=== PATIENT | female | born 1980 | race Caucasian/White ===

== ENCOUNTER 2021-06-01 10:51 | Emergency (ER) | payer OTHER ==
[2021-06-01 11:36] VITALS: BP 125/77
--- NOTE | 2021-06-01 11:58 | ED Physician Documentation ---
History of Present Illness - Stated complaint Stated Complaint: C+ - Chief complaint Chief Complaint: Resp - History obtained from History obtained from: Patient - Additonal information Additional information: Patient comes emergency department chief complaint of cough, nasal congestion, and shortness of breath. She states she took 3 at home Covid test and they were all positive. The last one was this morning and her symptoms first started about 5 days ago. Patient states that she is not sure if she had any sick contacts. No fevers. Patient would like the monoclonal antibody infusion. Review of Systems Ten Systems: 10 systems reviewed and negative Constitutional: reports: Reviewed and negative Eyes: reports: Reviewed and negative Ears: reports: Reviewed and negative Nose: reports: Rhinorrhea / runny nose, Congestion Throat: reports: Reviewed and negative Cardiac: reports: Reviewed and negative Respiratory: reports: Dyspnea, Cough GI: reports: Reviewed and negative : reports: Reviewed and negative Skin: reports: Reviewed and negative Musculoskeletal: reports: Reviewed and negative Neurologic: reports: Reviewed and negative Psychiatric: reports: Reviewed and negative Endocrine: reports: Reviewed and negative Immunocompromised: reports: Reviewed and negative PD PAST MEDICAL HISTORY - Allergies Allergies/Adverse Reactions: Allergies Allergy/AdvReac Type Severity Reaction Status Date / Time No Known Drug Allergies Allergy Verified 06/01/21 11:27 PD ED PE NORMAL - Vitals Vital signs reviewed: Yes - General General: Alert and oriented X 3, No acute distress, Well developed/nourished - HEENT HEENT: Atraumatic, PERRL, EOMI, Moist mucous membranes - Neck Neck: Supple, no meningeal sign - Cardiac Cardiac: RRR, No murmur, Strong equal pulses - Respiratory Respiratory: No respiratory distress, Clear bilaterally - Abdomen Abdomen: Soft, Non tender, Non distended - Derm Derm: Normal color, Warm and dry, No rash - Extremities Extremities: No deformity, No edema, No calf tenderness / cord - Neuro Neuro: Alert and oriented X 3, molder offbearer 2-12 intact, Normal speech - Psych Psych: Normal mood, Normal affect Results - Vitals Vitals: Vital Signs - 24 hr 06/01/21 11:28 Temperature 36.8 C Heart Rate 99 Respiratory 16 Rate Blood Pressure 125/77 O2 Saturation 100 Oxygen O2 Source Room air PD MEDICAL DECISION MAKING - ED course Complexity details: considered differential, d/w patient ED course: Patient overall had good vitals and appeared stable. I explained to her that she will need to have a Covid test on file before we can give her the monoclonal antibodies. The patient had a Covid swab done and sent for chest x-ray, which was unremarkable. I have advised the patient that she may watch for her Covid test results via the would be portal, which have included in her discharge instructions, and when she comes back with a positive test through our system, she may seek an antibiotic infusion at that time if she wishes. Patient expresses understanding. We have discussed other indications for return. Departure - Departure Disposition: 01 Home, Self Care Clinical Impression: COVID-19 Condition: Stable Instructions: COVID-19 [facility] Comments: Your chest x-ray is clear. Unfortunately, we cannot give the IV antibodies unless we have an official test on record here. You have a Covid test pending. You need to self quarantine until you test negative or for 2 weeks. The results should be done in 24 to 72 hours. We will call with a positive result, but the fastest way to get a negative result for confirmation is to go to the hospital website at [email or web address], click on the "my [facility]" tab and sign up for the patient portal. If other friends or family get sick and need to have a Covid test done, but do not have signs or symptoms that would necessitate being hospitalized, we encourage testing for coronavirus swabbing station at [phone]. You should have them call to schedule an appointment. Once your test comes back positive, you may come for an antibody infusion. Discharge Date/Time: 06/01/21 13:27
--- NOTE | 2021-06-01 12:39 | XRAY Report ---
PROCEDURE: Chest 1 View X-Ray INDICATIONS: cough/sob/covid TECHNIQUE: One view of the chest was acquired. COMPARISON: None FINDINGS: Surgical changes and devices: None. Lungs and pleura: No pleural effusions or pneumothorax. Lungs are clear. Mediastinum: Mediastinal contours appear normal. Heart size is normal. Bones and chest wall: No suspicious bony lesions. Overlying soft tissues appear unremarkable. IMPRESSION: No acute pulmonary process. Reviewed by: Marcella Rudd MD on 06/01/2021 12:37 PM PDT Approved by: Marcella Rudd MD on 06/01/2021 12:37 PM PDT Station ID: [id number]
== END 2021-06-01 13:27 | disposition home or self-care (01) ==
LOC: ED 10:51
DX: U07.1 COVID-19 (principal)
CPT/HCPCS: 99283; 99284

== ENCOUNTER 2021-06-03 11:00 | Emergency (ER) | payer OTHER ==
--- NOTE | 2021-06-03 12:15 | ED Physician Documentation ---
History of Present Illness - Stated complaint Stated Complaint: C+ - Chief complaint Chief Complaint: General - History obtained from History obtained from: Patient - Additonal information Additional information: Is a 40-year-old woman who was seen in the emergency department 2 days ago and tested positive for Covid. She has a history of asthma and returns for MAB treatment. She had a fever last night of 102.5. She is been taking ibuprofen. No other treatment specific for Covid. She is still coughing feels like she cannot get a deep breath and has nasal congestion. 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 - Allergies Allergies/Adverse Reactions: Allergies Allergy/AdvReac Type Severity Reaction Status Date / Time No Known Drug Allergies Allergy Verified 06/03/21 11:31 - Social History Does the pt smoke?: No Smoking Status: Never smoker Does the pt drink ETOH?: No Does the pt have substance abuse?: No - Immunizations Immunizations are current?: Yes PD ED PE NORMAL - Vitals Vital signs reviewed: Yes - General General: Alert and oriented X 3, No acute distress, Well developed/nourished - HEENT HEENT: Atraumatic, PERRL - Neck Neck: No JVD - Cardiac Cardiac: RRR, No murmur - Respiratory Respiratory: No respiratory distress, Clear bilaterally - Abdomen Abdomen: Normal bowel sounds, Soft - Derm Derm: Normal color, Warm and dry, No rash - Extremities Extremities: No edema - Neuro Neuro: Alert and oriented X 3, No motor deficit, No sensory deficit, Normal speech - Psych Psych: Normal mood Results - Vitals Vitals: Vital Signs - 24 hr 06/03/21 06/03/21 11:32 12:22 Temperature 36.5 C Heart Rate 88 107 H Respiratory 20 Rate Blood Pressure 100/67 99/66 O2 Saturation 100 99 Oxygen O2 Source Room air PD MEDICAL DECISION MAKING - ED course ED course: Covid test positive. Have ordered MAB. Patient counselled that she must still quarantine at home for 10 days past the onset of symptoms. Return in needed. Departure - Departure Disposition: 01 Home, Self Care Clinical Impression: COVID-19 Condition: Good Instructions: ED Viral Syndrome Follow-Up: Jose Noyola MD [Primary Care Provider] - Comments: Continue to quarantine at home until you are 10 days past the onset of your symptoms. Follow-up with your primary care provider as needed. Return to the emergency department if you have worsening shortness of breath, you pass out or other problems arise.
[2021-06-03] MEDS ORDERED: CASIRIVIMAB/IMDEVIMAB 10 ML in SODIUM CHLORIDE 0.9% 50 ML IV ONE (13:15)
[2021-06-03 14:19] VITALS: BP 105/60
== END 2021-06-03 15:03 | disposition home or self-care (01) ==
LOC: ED 11:00
DX: Z92.22 Personal history of monoclonal drug therapy (principal); U07.1 COVID-19; J45.909 Unspecified asthma, uncomplicated
CPT/HCPCS: J7040; M0243; Q0244